=== PATIENT | female | born 1940 | race Caucasian/White ===

== ENCOUNTER → 2019-04-20 09:48 | Outpatient (CLI) | payer MEDICARE, BC ==
[2015-03-21 09:10] VITALS: BMI 23.6
[~2019-04-20 09:48] MED LIST: BAYER CHEWABLE81 MG PO; GLUCOPHAGE500 MG PO; NORVASC2.5 MG PO; POTASSIUM CHLO10 ME1 PO; SYNTHROID112 MCG PO; TRIGLIDE160 MG PO; [UNRECOGNIZED DRUG - CODE]
--- NOTE | 2019-05-03 09:52 | ST ---
PATIENT:SALIMA AMANDA MEDICAL RECORD: [id number] SEX: F LOCATION:[facility] ORDER #: ADMISSION DATE: 04/20/19 AGE OF PATIENT: 78 REFERRING PHYSICIAN: INTERPRETING PHYSICIAN: HUNTER BELLO MD DATE OF SERVICE: 04/20/2019 PROCEDURE: Nuclear stress test. INDICATIONS: Angina, coronary artery disease, hypertension, hyperlipidemia. She was exercised on standard Lexiscan protocol with 32 mCi of sestamibi injected at peak stress, 10 mCi used previously for rest images. FINDINGS: Gated SPECT reveals preserved ejection fraction at 81% with good wall motion and thickening and brightening throughout all segments. SPECT imaging Cardiolite was used as myocardial fusion agent. There is homogeneous uptake throughout all segments at rest and stress with no evidence of inducible ischemia or previous infarction. OVERALL IMPRESSION: 1. This is a normal nuclear stress test with no evidence of inducible ischemia or previous infarction. 2. Gated SPECT reveals a preserved ejection fraction at 81%. In this patient with ongoing symptomatology, the current scan does not suggest the presence of hemodynamically significant coronary artery disease. Evaluate noncardiac etiology of chest pain. TRANSINT:[id number] Voice Confirmation ID: [id number] DOCUMENT ID: [id number] HUNTER BELLO MD at 0952 CC: NADEGE ROSS MD [id number] DICTATION DATE: 04/22/19 1513 VALIDATION LEADER: 04/23/19 0422 [facility] CLI 04/20/19 [id number] [place] [address]
== END | disposition home or self-care (01) ==
LOC: D.HCCARDIO 09:48
PROVIDERS: ATTEND Internal Medicine Interventional Cardiology
DX: I20.9 Angina pectoris, unspecified (principal); I10 Essential (primary) hypertension; E78.5 Hyperlipidemia, unspecified